=== PATIENT | male | born 1950 | race Caucasian/White ===

== ENCOUNTER → 2023-07-15 06:28 | Day surgery (SDC) | payer OTHER, SELFPAY ==
[2023-07-15 12:02] LABS: Glucose - Point of Care 119 mg/dl (70-99)
== END ==
LOC: GI 06:28
PROVIDERS: ATTENDING PHYSICIAN Surgery; FAMILY PHYSICIAN Student in an Organized Health Care Education/Training Program
DX: K64.9 Unspecified hemorrhoids (principal); R93.3 Abnormal findings on diagnostic imaging of other parts of digestive tract; Z85.038 Personal history of other malignant neoplasm of large intestine
CPT/HCPCS: 45330; 82962

== ENCOUNTER → 2023-11-17 10:03 | Outpatient (REF) | payer OTHER, SELFPAY | LOC: RAD 10:03 | PROVIDERS: ATTENDING PHYSICIAN Internal Medicine Hematology & Oncology; FAMILY PHYSICIAN Student in an Organized Health Care Education/Training Program | DX: C18.2 Malignant neoplasm of ascending colon (principal); C78.7 Secondary malignant neoplasm of liver and intrahepatic bile duct | CPT/HCPCS: 71260; 74177; Q9967 ==

== ENCOUNTER → 2024-03-01 12:18 | Outpatient (REF) | payer OTHER, SELFPAY | LOC: RAD 12:18 | PROVIDERS: ATTENDING PHYSICIAN Internal Medicine Hematology & Oncology; FAMILY PHYSICIAN Student in an Organized Health Care Education/Training Program | DX: C18.2 Malignant neoplasm of ascending colon (principal); C78.7 Secondary malignant neoplasm of liver and intrahepatic bile duct; D51.9 Vitamin B12 deficiency anemia, unspecified; G62.0 Drug-induced polyneuropathy | CPT/HCPCS: 71260; 74177; Q9967 ==

== ENCOUNTER → 2024-07-08 08:24 | Outpatient (REF) | payer OTHER, SELFPAY | LOC: RAD 08:24 | PROVIDERS: ATTENDING PHYSICIAN Internal Medicine Hematology & Oncology; FAMILY PHYSICIAN Student in an Organized Health Care Education/Training Program | DX: C18.2 Malignant neoplasm of ascending colon (principal); C78.7 Secondary malignant neoplasm of liver and intrahepatic bile duct; D51.9 Vitamin B12 deficiency anemia, unspecified; G62.0 Drug-induced polyneuropathy; R60.0 Localized edema | CPT/HCPCS: 71260; 74177; Q9967 ==

== ENCOUNTER → 2024-11-10 14:40 | Outpatient (REF) | payer OTHER, SELFPAY | LOC: MRI 14:40 | PROVIDERS: ATTENDING PHYSICIAN Internal Medicine Hematology & Oncology; FAMILY PHYSICIAN Student in an Organized Health Care Education/Training Program | DX: C18.2 Malignant neoplasm of ascending colon (principal); C78.7 Secondary malignant neoplasm of liver and intrahepatic bile duct; D51.9 Vitamin B12 deficiency anemia, unspecified; G62.0 Drug-induced polyneuropathy; R60.0 Localized edema; I82.431 Acute embolism and thrombosis of right popliteal vein; R53.81 Other malaise | CPT/HCPCS: 74183; A9575 ==

== ENCOUNTER → 2025-02-28 08:27 | Outpatient (REF) | payer OTHER, SELFPAY | LOC: RAD 08:27 | PROVIDERS: ATTENDING PHYSICIAN Internal Medicine Hematology & Oncology; FAMILY PHYSICIAN Student in an Organized Health Care Education/Training Program | DX: C18.2 Malignant neoplasm of ascending colon (principal); C78.7 Secondary malignant neoplasm of liver and intrahepatic bile duct; I82.431 Acute embolism and thrombosis of right popliteal vein | CPT/HCPCS: 71260; 74177; Q9967 ==

== ENCOUNTER → 2025-05-31 08:14 | Outpatient (REF) | payer OTHER, SELFPAY | LOC: RAD 08:14 | PROVIDERS: ATTENDING PHYSICIAN Internal Medicine Hematology & Oncology; FAMILY PHYSICIAN Student in an Organized Health Care Education/Training Program | DX: C18.2 Malignant neoplasm of ascending colon (principal); C78.7 Secondary malignant neoplasm of liver and intrahepatic bile duct; D51.9 Vitamin B12 deficiency anemia, unspecified; G62.0 Drug-induced polyneuropathy; R60.0 Localized edema; I82.431 Acute embolism and thrombosis of right popliteal vein; R53.81 Other malaise | CPT/HCPCS: 71260; 74177; Q9967 ==